=== PATIENT | male | born 1945 | race Caucasian/White ===

== ENCOUNTER → 2017-12-11 | Outpatient (CLI) | payer MEDICARE, BC ==
[~2017-12-11] MED LIST: ASPI-1159 PO; LOSA25TA12 PO; METO-396 PO; SIMV40TA5 PO
== END | disposition home or self-care (01) ==
LOC: US 07:39
DX: N28.1 Cyst of kidney, acquired (principal); E78.5 Hyperlipidemia, unspecified; I10 Essential (primary) hypertension
CPT/HCPCS: 76700